=== PATIENT | female | born 1970 | race Caucasian/White ===

== ENCOUNTER 2020-01-04 11:33 | Emergency (ER) | payer MEDICARE, OTHER ==
--- NOTE | 2020-01-04 12:28 | EDM.PDOC ---
ED HPI GENERAL MEDICAL PROBLEM - General Chief Complaint: Lower Extremity Injury/Pain Stated Complaint: L ANKLE INJURY Time Seen by Provider: 01/04/20 11:50 History Limitations: Reports: No Limitations - History of Present Illness INITIAL COMMENTS - FREE TEXT/NARRATIVE: 49 yo female presents to the ER after slipping and twisting left ankle. she was unable to bear wt after injury. She has had 2 previous foot fractures in the left foot. She is her on vacation. - Related Data Allergies Allergy/AdvReac Type Severity Reaction Status Date / Time amoxicillin [From Augmentin] Allergy Hives Verified 01/04/20 11:54 cephalexin [From Keflex] Allergy Hives Verified 01/04/20 11:54 clavulanic acid Allergy Hives Verified 01/04/20 11:54 [From Augmentin] codeine Allergy Blisters Verified 01/04/20 11:54 Sulfa (Sulfonamide Allergy Hives Verified 01/04/20 11:54 Antibiotics) Home Meds: Home Meds Furosemide [Lasix] 20 mg PO DAILY 01/04/20 [History] Gabapentin [Neurontin] 600 mg PO QID 01/04/20 [History] Ibuprofen [Ibu] 1,200 mg PO TID 01/04/20 [History] LORazepam [Ativan] 1 mg PO DAILY 01/04/20 [History] Minocycline [Minocin] 100 mg PO DAILY 01/04/20 [History] Zolpidem Tartrate [Ambien Cr] 6.5 mg PO BEDTIME 01/04/20 [History] tiZANidine [Zanaflex] 8 mg PO BEDTIME 01/04/20 [History] Past Medical History Psychiatric History: Reports: Anxiety Dermatologic History: Reports: Benign Melanoma - Past Surgical History HEENT Surgical History: Reports: Naso-Sinus Surgery, Tonsillectomy GI Surgical History: Reports: Cholecystectomy Female Surgical History: Reports: Hysterectomy Musculoskeletal Surgical History: Reports: Carpal Tunnel Social & Family History - Tobacco Use Smoking Status *Q: Never Smoker Review of Systems - Review of Systems Review Of Systems: See Below Constitutional: Denies: Chills, Fever Respiratory: Denies: Shortness of Breath Cardiovascular: Denies: Chest Pain GI/Abdominal: Denies: Abdominal Pain ED EXAM, GENERAL - Physical Exam Exam: See Below Exam Limited By: No Limitations General Appearance: Alert, WD/WN, No Apparent Distress Respiratory/Chest: No Respiratory Distress, Lungs Clear, Normal Breath Sounds. No: Crackles, Rhonchi, Wheezing Cardiovascular: Regular Rate, Rhythm, No Murmur Extremities: Other (tenderness lateral lower leg and juan lateral dorsum of foot) Course - Vital Signs Last Recorded V/S: Last Vital Signs Temp 37.2 C 01/04/20 12:10 Pulse 92 01/04/20 12:10 Resp 14 01/04/20 12:10 BP 135/100 H 01/04/20 12:10 Pulse Ox 98 01/04/20 12:10 - Radiology Interpretation Free Text/Narrative:: Ankle X-ray report Anterior and lateral soft tissue swelling. Possible ankle effusion. There is slight cortical irregularity of the distal fibula could represent an age- indeterminate avulsion injury. Talar dome appears intact. Normal alignment. Departure - Departure Time of Disposition: 13:35 Disposition: Home, Self-Care 01 Condition: Good Clinical Impression: Ankle sprain Qualifiers: Encounter type: initial encounter Involved ligament of ankle: other ligament Laterality: left Qualified Code(s): S93.492A - Sprain of other ligament of left ankle, initial encounter - Discharge Information *PRESCRIPTION DRUG MONITORING PROGRAM REVIEWED*: Not Applicable *COPY OF PRESCRIPTION DRUG MONITORING REPORT IN PATIENT ASPEN: Not Applicable Instructions: Ankle Sprain, [id number] Referrals: PCP,None [Primary Care Provider] - Forms: ED Department Discharge Additional Instructions: keep CAM walker in place for 3 days with no weight bearing out of the CAM walker ice as much as possible over the next 3 days weight bearing as tolerated thereafter if you are not improving or pain is worsening follow-up with primary care or orthopedics next week Sepsis Event Note (ED) - Evaluation Sepsis Screening Result: No Definite Risk - Focused Exam Vital Signs: Vital Signs Temp Pulse Resp BP Pulse Ox 01/04/20 12:10 37.2 C 92 14 135/100 H 98 01/04/20 11:49 37.2 C 92 14 135/100 H 98
--- NOTE | 2020-01-04 13:18 | CRLCR ---
INDICATION: Trauma 3 views of the left ankle. Findings: Anterior and lateral soft tissue swelling. Possible ankle effusion. There is slight cortical irregularity of the distal fibula could represent an age-indeterminate avulsion injury. Talar dome appears intact. Normal alignment. Dictated by Joyce Watt MD @ Jan 04 2020 1:15PM Signed by Dr. Joyce Watt @ Jan 04 2020 1:16PM
== END 2020-01-04 13:48 | disposition home or self-care (01) ==
LOC: JP.ED 11:33
DX: S93.492A Sprain of other ligament of left ankle, initial encounter (principal); F41.9 Anxiety disorder, unspecified; Z88.0 Allergy status to penicillin; Z88.1 Allergy status to other antibiotic agents; Z88.5 Allergy status to narcotic agent; Z88.2 Allergy status to sulfonamides; Z79.899 Other long term (current) drug therapy; X50.1XXA Overexertion from prolonged static or awkward postures, initial encounter
CPT/HCPCS: 73610-LT; 99283-25

== ENCOUNTER 2022-01-03 13:58 | Emergency (ER) | payer MEDICARE, OTHER ==
[2022-01-03] MEDS ORDERED: diphenhydrAMINE 50 MG/ML SDV IM ONE (14:40)
[2022-01-03] MEDS ORDERED: Prochlorperazine 10 MG/2 ML SDV IM ONE (14:40)
[2022-01-03] MEDS ORDERED: Ketorolac 30 MG/ML SDV IM ONE (14:40)
[2022-01-03] MEDS ORDERED: Nalbuphine 10 MG/1 ML Vial IM ONE (14:40)
[2022-01-03] MEDS ORDERED: Naloxone 0.4 MG/ML SDV IVPUSH ONE (15:49)
[2022-01-03] MEDS ORDERED: LORazepam 2 MG/ML SDV IVPUSH ONE (16:08)
[2022-01-03] MEDS ORDERED: Sodium Chloride 0.9% 1,000 ML IV SCH (16:15)
[2022-01-03] MEDS ORDERED: Morphine 2 MG/ML SYRINGE IVPUSH ONE (17:36)
== END 2022-01-03 18:18 | disposition home or self-care (01) ==
LOC: JP.ED 13:58
DX: G43.509 Persistent migraine aura without cerebral infarction, not intractable, without status migrainosus (principal); Z88.0 Allergy status to penicillin; Z88.1 Allergy status to other antibiotic agents; Z88.5 Allergy status to narcotic agent; Z88.2 Allergy status to sulfonamides
CPT/HCPCS: 96361; 96372; 96374; 96375; 99283; J0780; J1200; J1885; J2060; J2270; J2300; J7030